=== PATIENT | female | born 1995 | race Caucasian/White ===

== ENCOUNTER 2024-02-29 06:39 | Day surgery (SDC) | payer OTHER, SELFPAY ==
[2024-02-16 09:47] LABS: % Basophils 0.5 % (0-2); % Eosinophils 1.9 % (0-6); % Immature Granulocytes 0.5 % (0-0.5); % Lymphocytes 36.9 % (20.5-51.1); % Monocytes 6.8 % (1.7-9.3); % Neutrophils 53.4 % (42.2-75.2); Absolute Eosinophils 0.1 10^3/uL (0-0.7); Absolute Lymphocytes 2.2 10^3/uL (1.2-3.4); Absolute Monocytes 0.4 10^3/uL (0.1-0.6); Absolute Neutrophils 3.1 10^3/uL (1.4-6.5); Hematocrit 40.1 % (37.0-47.0); Hemoglobin 13.9 g/dL (12.0-16.0); Mean Corp Hgb Conc. 34.7 g/dL (33.0-37.0); Mean Corpuscular Hgb 31.4 pg (27.0-31.0); Mean Corpuscular Volume 90.7 fL (81.0-99.0); Mean Platelet Volume 10.7 fL (7.4-10.4); Nucleated Red Blood Cells % 0 %; Platelet Count 224 10^3/uL (130-400); Red Blood Cell Count 4.42 10^6/uL (4.20-5.40); Red Cell Dist. Width 12.4 % (11.5-14.5); White Blood Cell Count 5.9 10^3/uL (4.8-10.8)
[2024-02-16 12:13] LABS: Blood Urea Nitrogen 8 mg/dl (7-17); Calcium 9.3 mg/dl (8.4-10.2); Carbon Dioxide 26 mmol/L (22-30); Chloride 104 mmol/L (98-107); Glucose 75 mg/dl (70-99); Potassium 4.3 mmol/L (3.5-5.1); Sodium 144 mmol/L (135-145); eGFR > 60.00
[2024-02-16 13:54] VITALS: BMI 21.8
[2024-02-29] VITALS (8 sets, daily range): BP systolic 85–120; BP diastolic 59–84; BMI 21.8
[2024-02-29] MEDS: TYLENOL 1000 MG PO (13:53)
[2024-02-29] MEDS: NORMOSOL-R/PLASMALYTE-A 1000 IV (13:53)
[2024-02-29] MEDS: CELEBREX 200 MG PO (13:53)
[2024-02-29 14:42] LABS: HCG, Serum Qualitative Screen Negative
[2024-02-29] MEDS: DILAUDID 0.5 MG IV (18:00)
== END 2024-02-29 19:40 | disposition home or self-care (01) ==
LOC: SDS 06:39
PROVIDERS: ATTENDING PHYSICIAN Obstetrics & Gynecology; FAMILY PHYSICIAN Family Medicine
DX: Z30.2 Encounter for sterilization (principal); E28.2 Polycystic ovarian syndrome; Z90.79 Acquired absence of other genital organ(s)
CPT/HCPCS: 58661; 88302; 36415; 80048; 84703; 85025; 86850; 86900; 86901; C1776

== ENCOUNTER → 2024-04-18 10:13 | Outpatient (REF) | payer OTHER, SELFPAY | LOC: WDC 10:13 | PROVIDERS: ATTENDING PHYSICIAN Obstetrics & Gynecology; FAMILY PHYSICIAN Family Medicine | DX: N64.4 Mastodynia (principal) | CPT/HCPCS: 76642; 77062; 77066 ==